=== PATIENT | male | born 1960 | race Caucasian/White ===

== ENCOUNTER → 2016-06-16 | Day surgery (SDC) | payer BC ==
[~2016-06-16] MED LIST: AMLO10TA2 PO; ASPI81TA44 PO; ATOR10TA60 PO; BUPR150T11 PO; CIPR500T PO; CYAN10005 PO; DIAZ5TAB PO; FENTANYL PF 100 MCG/2 ML VIAL. IV PRN; FENTANYL PF 100 MCG/2 ML VIAL. ONE; FINA5TAB4 PO; FLUT1DIS3 INH; HYDROMORPHONE 2 MG/ML VIAL. IV PRN; IPRA4AER IH; IV RINGERS,LACTATED 1000ML 1,000 ML IV SCH; LIDOCAINE 1% 1 ML SYRINGE. ID PRN; LIDOCAINE 2% 100 MG/5 ML DISP.SYRIN. ONE; LISI10TA2 PO; METR500T4 PO; MIDAZOLAM HCL 2 MG/2 ML VIAL. ONE; MORPHINE SULFATE 2 MG/ML DISP.SYRIN. IV PRN; OMEG1CAP6 PO; ONDANSETRON PF 4 MG/2 ML VIAL. IV PRN; PROAIR HFA8.5 GM IH; PROCHLORPERAZINE 10 MG/2 ML VIAL. IV PRN; PROPOFOL 20 ML IV ONE; TAMS0.4C2 PO
[2016-06-16 14:30] VITALS: BP 110/60
--- NOTE | 2016-06-16 14:54 | RAD ---
PROCEDURE MR of the left shoulder HISTORY Pain after a fall 4 months ago. COMPARISON None TECHNIQUE Standard noncontrast images are obtained. FINDINGS The acromioclavicular joint is intact. Mild to moderate motion degradation. There is some hyperintense T2 signal at the undersurface of the anterior supraspinatus tendon compatible with a small sub centimeter partial thickness tear. No through and through full-thickness rupture. Trace fluid in the subdeltoid bursa. Subscapularis tendon appears intact. No significant glenohumeral joint effusion. No evidence of labrum tear. Biceps tendon is intact. No bone lesion or acute fracture. No acute soft tissue injury. IMPRESSION Rotator cuff tendinosis, with small partial thickness undersurface tear of the supraspinatus tendon. Electronically signed by: Martin Hargrove MD (Jun 16, 2016 14:53:21)
== END | disposition home or self-care (01) ==
LOC: SURG 12:17
PROVIDERS: ATTEND Anesthesiology
DX: S46.012A Strain of muscle(s) and tendon(s) of the rotator cuff of left shoulder, initial encounter (principal); E78.00 Pure hypercholesterolemia, unspecified; I10 Essential (primary) hypertension; M19.90 Unspecified osteoarthritis, unspecified site; F41.9 Anxiety disorder, unspecified; F32.9 Major depressive disorder, single episode, unspecified; F17.200 Nicotine dependence, unspecified, uncomplicated; X58.XXXA Exposure to other specified factors, initial encounter; Y99.9 Unspecified external cause status; Y93.29 Activity, other involving ice and snow; Y92.9 Unspecified place or not applicable
CPT/HCPCS: 73221; J2250; J2704; J3010